=== PATIENT | female | born 1985 | race African-American/Black ===

== ENCOUNTER 2016-08-16 16:40 | Observation (INO) | payer OTHER | END 2016-08-16 20:03 | disposition home or self-care (01) | DRG 781 | LOC: LDRP 16:40 → EDBD 16:40 | PROVIDERS: ADMIT Specialist; ATTEND Specialist | DX: O26.893 Other specified pregnancy related conditions, third trimester (principal); O21.2 Late vomiting of pregnancy; R19.7 Diarrhea, unspecified; Z3A.28 28 weeks gestation of pregnancy | CPT/HCPCS: 59025; 81002; G0378; 96365; 96366 ==